=== PATIENT | female | born 1975 | race Caucasian/White ===

== ENCOUNTER → 2019-12-14 | Outpatient (REF) | payer BC ==
[2019-12-14 13:51] LABS: BASO # 0.1 10^3/uL (0.0-0.2); BASO % 0.7 % (0.0-1.0); EOS % 9.8 % (0.0-3.0); HEMATOCRIT 51.1 % (36.0-47.0); HEMOGLOBIN 16.4 g/dl (12.0-15.5); LYMPH # 2.4 10^3/uL (1.5-5.0); LYMPH % 23.2 % (24.0-44.0); MEAN CORPUSCULAR HEMOGLOBIN 29.5 pg (27.0-33.0); MEAN CORPUSCULAR HGB CONC 32.1 g/dl (32.0-36.5); MEAN CORPUSCULAR VOLUME 92.1 fl (80.0-96.0); MONO % 9.1 % (0.0-5.0); NEUTROPHILS # 5.9 10^3/uL (1.5-8.5); NEUTROPHILS % 56.8 % (36.0-66.0); PLATELET COUNT, AUTOMATED 280 10^3/uL (150-450); RED BLOOD COUNT 5.55 10^6/uL (4.00-5.40); WHITE BLOOD COUNT 10.4 10^3/uL (4.0-10.0)
[2019-12-14 14:06] LABS: ALBUMIN 4.6 GM/DL (3.2-5.2); ALT/SGPT 18 U/L (12-78); BILIRUBIN,TOTAL 0.9 MG/DL (0.2-1.0); BLOOD UREA NITROGEN 11 MG/DL (7-18); C REACTIVE PROTEIN QUANTITATIV 0.48 MG/DL (0.00-0.30); CALCIUM LEVEL 9.6 MG/DL (8.5-10.1); CARBON DIOXIDE LEVEL 27 MEQ/L (21-32); CHLORIDE LEVEL 103 MEQ/L (98-107); CREATININE FOR GFR 1.06 MG/DL (0.55-1.30); GLOMERULAR FILTRATION RATE > 60.0 (>58); GLUCOSE, FASTING 78 MG/DL (70-100); POTASSIUM SERUM 4.2 MEQ/L (3.5-5.1); RHEUMATOID FACTOR QUANT < 10.0 IU/ML (<15.0); SODIUM LEVEL 138 MEQ/L (136-145)
[2019-12-14 14:24] LABS: ERYTHROCYTE SEDIMENTATION RATE 2 mm/hr (0-20)
[2019-12-15 14:07] LABS: ANTINUCLEAR ANTIBODIES DIRECT Negative (Negative)
== END ==
LOC: M LABDRWAD 12:19
PROVIDERS: ATTEND Nurse Practitioner Family
DX: R21 Rash and other nonspecific skin eruption (principal)

== ENCOUNTER → 2020-07-25 | Outpatient (REF) | payer BC | LOC: M LAB REF 12:02 | PROVIDERS: ATTEND Nurse Practitioner Family | DX: Z12.4 Encounter for screening for malignant neoplasm of cervix (principal) | CPT/HCPCS: 87624; G0123 ==

== ENCOUNTER → 2020-10-14 | Outpatient (CLI) | payer BC | LOC: M LABSMTC 10:30 | PROVIDERS: ATTEND Anesthesiology | DX: Z01.812 Encounter for preprocedural laboratory examination (principal); Z20.828 Contact with and (suspected) exposure to other viral communicable diseases ==

== ENCOUNTER 2020-10-19 07:20 | Day surgery (SDC) | payer BC ==
[~2020-10-19] VITALS: Ht 167.6 cm; Wt 72.9 kg
[~2020-10-19 07:20] MED LIST: LR 1,000 ML IV ONE; ceFAZolin SOD 2 GM in IV 1 EA IV ONE
[2020-10-19 08:08] LABS: HEMATOCRIT 47.1 % (36.0-47.0); HEMOGLOBIN 15.3 g/dl (12.0-15.5); MEAN CORPUSCULAR HEMOGLOBIN 29.5 pg (27.0-33.0); MEAN CORPUSCULAR HGB CONC 32.5 g/dl (32.0-36.5); MEAN CORPUSCULAR VOLUME 90.9 fl (80.0-96.0); PLATELET COUNT, AUTOMATED 293 10^3/uL (150-450); RED BLOOD COUNT 5.18 10^6/uL (4.00-5.40); WHITE BLOOD COUNT 8.9 10^3/uL (4.0-10.0)
[2020-10-19] MEDS ORDERED: MIDAZOLAM INJ 2MG/2ML VIAL (J2250 PER 1MG) As Ordered ONE (08:40)
[2020-10-19] MEDS ORDERED: fentaNYL 100 MCG/2 ML INJECTION (J3010) As Ordered ONE ×2 (08:40→11:16)
[2020-10-19] MEDS ORDERED: LIDOCAINE 2% 100MG/5ML SDV (FOR ANES.) As Ordered ONE (08:42)
[2020-10-19] MEDS ORDERED: propofoL 200 MG/20 ML VIAL As Ordered ONE (08:42)
[2020-10-19] MEDS ORDERED: ROCURONIUM BROMIDE 50 MG/5 ML VIAL As Ordered ONE ×2 (08:43→10:01)
[2020-10-19] MEDS ORDERED: FLUORESCEIN 10% (100MG/ML) 5 ML VIAL As Ordered ONE (08:46)
[2020-10-19] MEDS ORDERED: METOCLOPRAMIDE INJ 10MG/2ML VIAL (J2765 PER 1) As Ordered ONE (09:17)
[2020-10-19] MEDS ORDERED: ONDANSETRON 4MG/2ML VIAL As Ordered ONE (09:17)
[2020-10-19] MEDS ORDERED: ACETAMINOPHEN 1000MG 100ML IV BTL (OFIRMEV) (J0131 PER 10MG) As Ordered ONE (09:17)
[2020-10-19] MEDS ORDERED: KETOROLAC 60MG 2ML VIAL As Ordered ONE (09:17)
[2020-10-19] MEDS ORDERED: dexameTHASONE 4 MG/ML 1ML VIAL (J1100 PER 1MG) As Ordered ONE (09:17)
[2020-10-19] MEDS ORDERED: SUGAMMADEX SODIUM 500 MG/5 ML VIAL (BRIDION) As Ordered ONE (09:20)
[2020-10-19] MEDS ORDERED: LIDOCAINE W/EPINEPHRINE 1% 20ML VIAL As Ordered ONE (09:21)
[2020-10-19] MEDS ORDERED: HYDROmorphone HCL 2 MG/ML 1ML VIAL (J1170) As Ordered ONE (09:27)
[2020-10-19] MEDS: fentaNYL 100 MCG/2 ML INJECTION (J3010) IV PRN ×4 (11:17→11:46)
[2020-10-19] MEDS ORDERED: ONDANSETRON 4MG/2ML VIAL IV PRN (11:30)
[2020-10-19] MEDS ORDERED: oxyCODONE 5MG TAB PO PRN (11:30)
[2020-10-19] MEDS ORDERED: HYDROMORPHONE HCL 0.5 MG/ 0.5 ML SYRINGE (J1170 PER 1) IV PRN (11:30)
[2020-10-19] MEDS ORDERED: LR 1,000 ML IV SCH (11:30)
[2020-10-19] MEDS ORDERED: PERCOCET 5MG/325MG TAB PO PRN (11:45)
[2020-10-19] MEDS ORDERED: OXYC-517 PO (11:56)
[2020-10-19] MEDS ORDERED: SIMETHICONE 80 MG CHEW TAB PO SCH (12:00)
[2020-10-19 14:10] VITALS: BP 121/67
--- NOTE | 2020-10-19 14:51 | RO ---
DATE OF OPERATION: 10/19/2020 Karen is a 45-year-old female who has an extensive history of abnormal uterine bleeding, post ablation. She was found to have an a large fibroid uterus. After extensive counseling, a decision was made to proceed with a robotic-assisted total hysterectomy and removal of both tubes as well as cystoscopy. PREOPERATIVE DIAGNOSES: 1. A large fibroid uterus. 2. Post ablation. 3. Abnormal uterine bleeding. POSTOPERATIVE DIAGNOSES: 1. A large fibroid uterus. 2. Post ablation. 3. Abnormal uterine bleeding. 4. Dense bladder adhesion. PROCEDURES: 1. Robotic-assisted total hysterectomy. 2. Bilateral salpingectomy. 3. Cystoscopy. 4. Extensive lysis of adhesions. ANESTHESIA: General. SURGEON: Dr. Campos WHARF OPERATOR: Diana Givens COMPLICATIONS: None. ESTIMATED BLOOD LOSS: Less than 100 mL. SPECIMENS SENT TO THE LABORATORY: The uterus, tubes. FINDINGS: A large fibroid uterus with dense bladder adhesions. The bladder was found to be adherent to the lower uterine segment as well as the sidewall. PROCEDURE DESCRIPTION: After obtaining informed consent, patient was taken to the operating room, where general anesthetic was found to be adequate. She was then draped and prepped in the usual sterile fashion in the dorsal lithotomy position. At this point, a Jacobo catheter was placed in the bladder for drainage. A uterine manipulator was placed. Attention was then turned to the abdomen, where using the Veress needle the abdomen was insufflated with CO2 gas to approximately 3.5 liters. We then placed an 8 mm supraumbilical incision for the robotic camera and two 8 mm left lateral ports for robotic arm 1 in the assist port and on the right an 8 mm port for robotic arm 2. At this point, patient was placed in steep Trendelenburg. The robot was brought to the patient's side at a 45-degree angle. The camera port was docked. Proper targeting was done. Then we docked arm 1 and arm 2. A SynchroSeal was placed in arm 1, and bipolar grasper in 2. I then unscrubbed and went to the surgeon console and began the surgery. Upon evaluating the pelvis, small bilateral hydrosalpinx was noted. The entire tube was removed using the SynchroSeal device all the way down to the utero-ovarian ligament. The utero-ovarian ligament was cauterized and cut using the SynchroSeal. This was taken down to the uterine arteries. The uterine arteries were skeletonized and cut using the SynchroSeal. At this point, careful dissection was done to bring down the bladder off the lower uterine segment as well as the sidewall. This was done with a series of sharp and blunt dissection using the SynchroSeal and the bipolar grasper. We secured both uterine arteries. At this point, the SynchroSeal was removed. The EndoShield was inserted, and anterior and posterior colpotomy was performed. The uterus as well as bilateral fallopian tubes were removed in two segments through the vagina. A moistened sponge lap was placed in the vagina to maintain pneumoperitoneum. Then 1 mL of fluorescein was given by the anesthesiologist to help with cystoscopy. The bladder was then retrograde filled to help with cystoscopy. At this point, the vaginal cuff was closed using 2-0 V-lock suture in a running fashion. Pelvis was copiously irrigated with normal saline and suctioned down. I then unscrubbed and went to the patient's side, retrograde filled the bladder with 230 mL of normal saline. The catheter was removed. Cystoscope was inserted. Bilateral ureteral jets noted. No evidence of any bladder injury noted. At this point, the Jacobo catheter was placed back for drainage. I then turned my attention to the abdomen, where the robotic port sites were closed using 3-0 Vicryl in a subcuticular fashion. Then 0.25% Marcaine was placed for postoperative pain. Patient tolerated the procedure well. She was then transferred to recovery room in stable condition. EZE
[2020-10-19] MEDS ORDERED: IBUPROFEN 800 MG TAB PO SCH (15:00)
== END 2020-10-19 14:25 | disposition home or self-care (01) ==
LOC: M SDC 07:20
PROVIDERS: ATTEND Obstetrics & Gynecology
DX: N93.9 Abnormal uterine and vaginal bleeding, unspecified (principal); D25.9 Leiomyoma of uterus, unspecified; K66.0 Peritoneal adhesions (postprocedural) (postinfection)
CPT/HCPCS: 36415; 49329; 58571; 81025; 85027; 86850; 86900; 86901; 88307; J0131; J0690; J1100; J1170; J1885; J2250; J2405; J2765; J3010; S2900

== ENCOUNTER 2021-01-11 09:32 | Emergency (ER) | payer BC ==
[~2021-01-11] VITALS: Ht 167.6 cm; Wt 75.6 kg
[~2021-01-11 09:32] MED LIST changes: -LR 1,000 ML IV ONE; +OXYC-517 PO; -ceFAZolin SOD 2 GM in IV 1 EA IV ONE
--- OUTSIDE RECORDS SUMMARY | 2021-01-11 09:37 | CCD | Continuity of Care Document ---
Author Author Karen W[facility]MAN [employer] Organization Unknown Address [address] [place] [address] [place] [address] Phone [phone] Care Team Providers Care Journeyman Molder Name Role Phone [facility] - Family Medicine AUTM [phone] [facility] AUTM [phone] Problems Description No Information Available Social History Type Date Description Comments Sex Unknown Tobacco Use Start: Unknown Light tobacco smoker (10 or fewe r cigarettes/day) ETOH Use Occasionally consumes alcohol Tobacco Use Start: Unknown Patient is a current smoker, smo kes every day Tobacco Use Start: Unknown Light tobacco smoker (10 or fewe r cigarettes/day) Smoking Status Reviewed: 12/01/20 Light tobacco smoker (10 or fewer cigarettes/day) Allergies, Adverse Reactions, Alerts Description No Known Drug Allergies Medications Active Medications SIG Qnty Indications Ordering Provide r Date Chlorhexidine Gluconate 0.12% Solu tion 10- 15 milliliters as a mouthwash twice daily 236ml K12.0 Jerzy Fernandez JR., M.D. 12/01/2020 History Medications No Active Medications Unknown 05/2021 - 12/01/2020 Immunizations Description No Information Available Vital Signs Date Vital Result Comment 12/01/2020 5:57pm BP Systolic 131 mmHg BP Diastolic 80 mmHg Heart Rate 64 /min 12/01/2020 5:33pm BP Systolic 167 mmHg BP Diastolic 83 mmHg Heart Rate 77 /min Respiratory Rate 14 /min O2 % BldC Oximetry 98 % Body Temperature 97.5 F Weight 160.00 lb Height 66 inches 5'6" BMI (Body Mass Index) 25.8 kg/m2 Pain Level 2 Results Description No Information Available Procedures Description No Information Available Medical Devices Description No Information Available Encounters Description No Information Available Assessments Date Code Description Provider 12/01/2020 K12.0 Recurrent oral aphthae Bia casiano NP Plan of Treatment 12/01/2020 - Bia Wyman NP* K12.0 Recurrent oral aphthae* New Medication:* Chlorhexidine Gluconate 0.12 % - 10-15 milliliters as a mouthwash twice daily * Comments:* abx mouthwash as directedtriggers reviewedOT analgesics PRNorajel PRN f/u PRN or with PCPpatient v/u & agrees to plan Functional Status Description No Information Available Mental Status Description No Information Available Referrals Description No Information Available
--- OUTSIDE RECORDS SUMMARY | 2021-01-11 09:37 | CCD | Continuity of Care Document ---
Author Author Karen W[employer]MAN [employer] Organization Unknown Address [address] [place] [address] [place] [address] Phone [phone] Care Team Providers Care Sawmill Supervisor Name Role Phone [facility] Family [facility] - Family Medicine AUTM [phone] [facility] AUTM [phone] Problems Description No Information Available Social History [...] Medical Devices Description No Information Available Encounters Type Date Location Provider Dx Diagnosis Office Visit 12/01/2020 5:00p Main Office Bia Wyman NP K12. 0 Recurrent oral aphthae Z20.828 Contact w and exposure to ot h viral communicable diseases Assessments Date Code Description Provider 12/01/2020 K12.0 Recurrent oral aphthae Bia casiano NP 12/01/2020 Z20.828 Contact with and (smith spected) exposure to other viral communicable diseases Bia Wyman NP Plan of Treatment No Information Available Functional Status Description No Information Available Mental Status Description No Information Available Referrals Description No Information Available
--- OUTSIDE RECORDS SUMMARY | 2021-01-11 09:37 | CCD | Continuity of Care Document ---
Author Organization Unknown Address Unknown Phone Unavailable Care Team Providers Care Translator And Interpreter Name Role Phone Rahul Nguyen M.D. AUTM [phone] Jay Campos AUTM [phone] Problems Active Problems Provider Date Lluvia Holliday ANP Onset: 01/26/2011 Social History Type Date Description Comments Sex Unknown Tobacco Use Start: Unknown End: Unknown former cigarette smo ker Tobacco Use Start: Unknown End: Unknown Former Cigarette Smo ker Smoking Status Reviewed: 07/25/20 Former Cigarette Smoker Tobacco Use Start: Unknown Never Used Smokeless Tobacco ETOH Use Rarely consumes alcohol Tobacco Use Start: 11/25/92 Patient is a current smoker, smo kes every day usually 3 or 4 cigarettes a day Recreational Drug Use Denies Drug Use Exercise Type/Frequency Exercises regularly Sun Exposure Uses sunscreen Seat Belt/Car Seat Always uses seat belt Bike Helmet Always Smoke Alarms Yes Smoke Alarms Carbon Monoxide Detector: Yes Allergies, Adverse Reactions, Alerts Description No Known Drug Allergies Medications Active Medications SIG Qnty Indications Ordering Provide r Date Cetirizine HCL 10mg Tablets Take 1 Tablet By Mouth Once Daily AT Night 90Tablet Gwen Forde PA 08/08/2020 Xanax 0.25mg Tablets q id prn anxiety 120tabs R21 lEizabeth Kirkland FNP 12/14/2019 F43.0 History Medications Amoxicillin 875mg Tablets 1 by mouth twice a day 14tabs J01.90 Sheila Price M.D. 020 - 07/25/2020 Immunizations CPT Code Status Date Vaccine Lot # [id number] Given 07/13/2020 Boostrix (Tdap) Tetnus, Diphtheria Toxoids & Acellular Pertussis [id number] Vital Signs Date Vital Result Comment 07/25/2020 4:31pm BP Systolic 126 mmHg BP Diastolic 71 mmHg Heart Rate 65 /min Body Temperature 97.8 F Respiratory Rate 16 /min Height 67 inches 5'7" Weight 162.12 lb O2 % BldC Oximetry 99 % Peak Expiratory Flow Rate 389 Estimated Peak Flow Rate [place] Body Weight 135 lb BMI (Body Mass Index) 25.4 kg/m2 07/13/2020 3:15pm BP Systolic 129 mmHg BP Diastolic 66 mmHg Heart Rate 63 /min Body Temperature 98.9 F Respiratory Rate 15 /min Height 67 inches 5'7" Weight 158.50 lb O2 % BldC Oximetry 98 % Peak Expiratory Flow Rate 389 Estimated Peak Flow Rate [place] Body Weight 135 lb BMI (Body Mass Index) 24.8 kg/m2 Results Test Acquired Date Facility Test Result H/L Range Note Complete Blood Count 10/19/2020 [place] [address] [phone] White Blood Count 8.9 10 Normal 4.0-10.0 Red Blood Count 5.18 10 Normal 4.00-5.40 Hemoglobin 15.3 g/dL Normal 12.0-15.5 Hematocrit 47.1 % High 36.0-47.0 Mean Corpuscular Volume 90.9 fl Normal 80.0-96.0 Mean Corpuscular Hemoglobin 29.5 pg Normal 27.0-33.0 Mean Corpuscular HGB Conc 32.5 g/dL Normal 32.0-36.5 Red Cell Distribution Width 12.4 % Normal 11.5-14.5 Platelet Count, Automated 293 10 Normal 150-450 Nucleated Red Blood Cell % 0.0 % Normal 0-0 Type & Screen -Incl Blood Type,Jose,AB SC 10/19/2020 [place] [address] [phone] Blood Type B NEGATIVE Normal AB Screen (Indirect Jael)Vis NEGATIVE Normal Laboratory test finding 07/26/2020 [place] [address] [phone] HPV Screen (High Risk Only) Negative Normal Nega tive 1 Laboratory test finding 07/25/2020 [facility] [phone] Pap Request For Service (SEE NOTE) 2 Laboratory test finding 07/25/2020 [place] [address] [phone] HPV Screen (High Risk Only) SEE COMMENT Normal 1 This nucleic acid amplificat ion test detects fourteen high- risk HPV types (16,18,31,33,35,39,45,51,52,56,58,59,66,68) without differentiation. Performed at: - [facility] [id number] Collection Administrator: Susan Mendoza MD, Phone: [phone] Addendum 1 Entered: [id number] The HPV test is negative for high risk types, test performed at [facility] [address]. 08/04/20201157 Addendum Signed____ MELANI ROWELL CT (ASCP) 08/04/2020 1201 SPECIMEN ADEQUACY: Satisfactory for evaluation CATEGORIZATION: Negative for Intraepithelial Lesion or Malignancy Infection: Reactive Changes: SQUAMOUS CELL: GLANDULAR CELL: COMMENTS: HPV test submitted. The cervical PAP smear is a screening test. Both false positive and false negative results occur. A negative PAP smear does not preclude dysplasia or malignancy. Clinical correlation is required in every case. Further diagnostic procedures may be clinically indicated even if a PAP smear is interpreted as within normal limits. 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) (routine) w/o abn findings Office Visit 07/13/2020 3:15p Main Office Gwen Forde PA J01.90 Acute sinusitis, unspecified Z23 Encounter for immunization Assessments Date Code Description Provider 07/25/2020 Z01.419 Encounter for gyneco logical examination (general) (routine) without abnormal findings Elizabeth Kirkland FNP 07/13/2020 J01.90 Acute sinusitis, unspecified Pet Gwen marlow PA 07/13/2020 Z23 Encounter for immunization Gwen Howe PA Plan of Treatment 07/25/2020 - Elizabeth Kirkland FNP* Z01.419 Encounter for gynecological examination (general) (routine) without abnormal findings* Comments:* Health maintenance up to date. Overall doing well. ABIODUN/PHQ 9/CAGE questionnaire negative. Discussed healthy lifestyle choices. Will get ultrasound to evaluate enlarged uterus, refer to Dr. Cardoso if needed * Follow up:* annually will get letter or call with pap results and recommendation for f/u pap Functional Status Functional Condition Comment Date Status Soft contacts Active Independent with all ADL's Activ e Glasses Active Independent with all IADL's Acti ve Mental Status Mental Condition Comment Date Status None Active Referrals Refer to Reason for Referral Status Appt Date Jay Campos,DO fibrotic changes seen on pel giovani/transvaginal u/s, needs further evaluation Closed 08/31/2020 2 [facility] [id number] [phone]
--- OUTSIDE RECORDS SUMMARY | 2021-01-11 09:37 | CCD ---
Author Author [facility] Organization [facility] Address Unknown Phone Unavailable Care Team Providers Care Soda Jerker Name Role Phone Pleskach, Elizabeth CEMENT TESTER ASSISTANT Unavailable Unavailable Pleskach, Elizabeth CEMENT TESTER ASSISTANT Unavailable Unavailable Pleskach, Elizabeth CEMENT TESTER ASSISTANT Unavailable Unavailable Pleskach, Elizabeth CEMENT TESTER ASSISTANT Unavailable Unavailable Pleskach, Elizabeth CEMENT TESTER ASSISTANT Unavailable Unavailable Pleskach, Elizabeth CEMENT TESTER ASSISTANT Unavailable Unavailable Pleskach, Elizabeth CEMENT TESTER ASSISTANT Unavailable Unavailable Pleskach, Elizabeth CEMENT TESTER ASSISTANT Unavailable Unavailable Pleskach, Elizabeth CEMENT TESTER ASSISTANT Unavailable Unavailable Pleskach, Elizabeth CEMENT TESTER ASSISTANT Unavailable Unavailable Pleskach, Elizabeth CEMENT TESTER ASSISTANT Unavailable Unavailable Pleskach, Elizabeth CEMENT TESTER ASSISTANT Unavailable Unavailable Pleskach, Elizabeth CEMENT TESTER ASSISTANT Unavailable Unavailable Pleskach, Elizabeth CEMENT TESTER ASSISTANT Unavailable Unavailable Pleskach, Elizabeth CEMENT TESTER ASSISTANT Unavailable Unavailable Pleskach, Elizabeth CEMENT TESTER ASSISTANT Unavailable Unavailable Pleskach, Elizabeth CEMENT TESTER ASSISTANT Unavailable Unavailable Pleskach, Elizabeth CEMENT TESTER ASSISTANT Unavailable Unavailable Pleskach, Elizabeth CEMENT TESTER ASSISTANT Unavailable Unavailable Pleskach, Elizabeth CEMENT TESTER ASSISTANT Unavailable Unavailable Pleskach, Elizabeth CEMENT TESTER ASSISTANT Unavailable Unavailable Pleskach, Elizabeth CEMENT TESTER ASSISTANT Unavailable Unavailable Pleskach, Elizabeth CEMENT TESTER ASSISTANT Unavailable Unavailable Pleskach, Elizabeth CEMENT TESTER ASSISTANT Unavailable Unavailable Pleskach, Elizabeth CEMENT TESTER ASSISTANT Unavailable Unavailable Pleskach, Elizabeth CEMENT TESTER ASSISTANT Unavailable Unavailable Pleskach, Elizabeth CEMENT TESTER ASSISTANT Unavailable Unavailable Pleskach, Elizabeth CEMENT TESTER ASSISTANT Unavailable Unavailable Pleskach, Elizabeth CEMENT TESTER ASSISTANT Unavailable Unavailable Pleskach, Elizabeth CEMENT TESTER ASSISTANT Unavailable Unavailable Petrancosta, Weber Gwen PA-C Unavailable Unavailabl e Petrancosta, Weber Gwen PA-C Unavailable Unavailabl e Petrancosta, Weber Gwen PA-C Unavailable Unavailabl e Petrancosta, Weber Gwen PA-C Unavailable Unavailabl e Petrancosta, Weber Gwen PA-C Unavailable Unavailabl e Petrancosta, Weber Gwen PA-C Unavailable Unavailabl e Petrancosta, Weber Gwen PA-C Unavailable Unavailabl e Petrancosta, Weber Gwen PA-C Unavailable Unavailabl e Petrancosta, Weber Gwen PA-C Unavailable Unavailabl e Petrancosta, Weber Gwen PA-C Unavailable Unavailabl e Petrancosta, Weber Gwen PA-C Unavailable Unavailabl e Petrancosta, Weber Gwen PA-C Unavailable Unavailabl e Petrancosta, Weber Gwen PA-C Unavailable Unavailabl e Petrancosta, Weber Gwen PA-C Unavailable Unavailabl e Petrancosta, Weber Gwen PA-C Unavailable Unavailabl e Petrancosta, Weber Gwen PA-C Unavailable Unavailabl e Petrancosta, Weber Gwen PA-C Unavailable Unavailabl e Petrancosta, Weber Gwen PA-C Unavailable Unavailabl e Petrancosta, Weber Gwen PA-C Unavailable Unavailabl e Petrancosta, Weber Gwen PA-C Unavailable Unavailabl e Petrancosta, Weber Gwen PA-C Unavailable Unavailabl e Petrancosta, Weber Gwen PA-C Unavailable Unavailabl e Petrancosta, Weber Gwen PA-C Unavailable Unavailabl e Stevens, Bia REFUSE DRIVER Unavailable Unavailable Stevens, Bia REFUSE DRIVER Unavailable Unavailable Stevens, Bia REFUSE DRIVER Unavailable Unavailable Stevens, Bia REFUSE DRIVER Unavailable Unavailable Stevens, Bia REFUSE DRIVER Unavailable Unavailable Stevens, Bia REFUSE DRIVER Unavailable Unavailable Stevens, Bia REFUSE DRIVER Unavailable Unavailable Stevens, Bia REFUSE DRIVER Unavailable Unavailable Stevens, Bia REFUSE DRIVER Unavailable Unavailable Stevens, Bia REFUSE DRIVER Unavailable Unavailable Stevens, Bia REFUSE DRIVER Unavailable Unavailable Dodard, Jay DO Unavailable Unavailable Dodard, Jay DO Unavailable Unavailable Dodard, Jay DO Unavailable Unavailable Dodard, Jay DO Unavailable Unavailable Dodard, Jay DO Unavailable Unavailable Dodard, Jay DO Unavailable Unavailable Dodard, Jay DO Unavailable Unavailable Dodard, Jay DO Unavailable Unavailable Dodard, Jay DO Unavailable Unavailable Dodard, Jay DO Unavailable Unavailable Dodard, Jay DO Unavailable Unavailable Dodard, Jay DO Unavailable Unavailable Dodard, Jay DO Unavailable Unavailable Dodard, Jay DO Unavailable Unavailable Dodard, Jay DO Unavailable Unavailable Dodard, Jay DO Unavailable Unavailable Dodard, Jay DO Unavailable Unavailable Dodard, Jay DO Unavailable Unavailable Dodard, Jay DO Unavailable Unavailable Dodard, Jay DO Unavailable Unavailable Dodard, Jay DO Unavailable Unavailable Dodard, Jay DO Unavailable Unavailable Dodard, Jay DO Unavailable Unavailable Dodard, Jay DO Unavailable Unavailable Dodard, Jay DO Unavailable Unavailable Dodard, Jay DO Unavailable Unavailable Dodard, Jay DO Unavailable Unavailable Dodard, Jay DO Unavailable Unavailable Dodard, Jay DO Unavailable Unavailable Dodard, Jay DO Unavailable Unavailable Dodard, Jay DO Unavailable Unavailable Dodard, Jay DO Unavailable Unavailable Dodard, Jay DO Unavailable Unavailable Dodard, Jay DO Unavailable Unavailable Dodard, Jay DO Unavailable Unavailable Dodard, Jay DO Unavailable Unavailable Dodard, Jay DO Unavailable Unavailable Dodard, Jay DO Unavailable Unavailable Dodard, Jay DO Unavailable Unavailable Dodard, Jay DO Unavailable Unavailable Dodard, Jay DO Unavailable Unavailable Dodard, Jay DO Unavailable Unavailable Dodard, Jay DO Unavailable Unavailable Dodard, Jay DO Unavailable Unavailable Pleskach, Elizabeth CEMENT TESTER ASSISTANT Unavailable Unavailable Pleskach, Elizabeth CEMENT TESTER ASSISTANT Unavailable Unavailable Pleskach, Elizabeth CEMENT TESTER ASSISTANT Unavailable Unavailable Pleskach, Elizabeth CEMENT TESTER ASSISTANT Unavailable Unavailable Pleskach, Elizabeth CEMENT TESTER ASSISTANT Unavailable Unavailable Pleskach, Elizabeth CEMENT TESTER ASSISTANT Unavailable Unavailable Pleskach, Elizabeth CEMENT TESTER ASSISTANT Unavailable Unavailable Pleskach, Elizabeth CEMENT TESTER ASSISTANT Unavailable Unavailable Pleskach, Elizabeth CEMENT TESTER ASSISTANT Unavailable Unavailable Pleskach, Elizabeth CEMENT TESTER ASSISTANT Unavailable Unavailable Pleskach, Elizabeth CEMENT TESTER ASSISTANT Unavailable Unavailable Pleskach, Elizabeth CEMENT TESTER ASSISTANT Unavailable Unavailable Pleskach, Elizabeth CEMENT TESTER ASSISTANT Unavailable Unavailable Pleskach, Elizabeth CEMENT TESTER ASSISTANT Unavailable Unavailable Pleskach, Elizabeth CEMENT TESTER ASSISTANT Unavailable Unavailable Pleskach, Elizabeth CEMENT TESTER ASSISTANT Unavailable Unavailable Pleskach, Elizabeth CEMENT TESTER ASSISTANT Unavailable Unavailable Pleskach, Elizabeth CEMENT TESTER ASSISTANT Unavailable Unavailable Pleskach, Elizabeth CEMENT TESTER ASSISTANT Unavailable Unavailable Pleskach, Elizabeth CEMENT TESTER ASSISTANT Unavailable Unavailable Pleskach, Elizabeth CEMENT TESTER ASSISTANT Unavailable Unavailable Pleskach, Elizabeth CEMENT TESTER ASSISTANT Unavailable Unavailable Pleskach, Elizabeth CEMENT TESTER ASSISTANT Unavailable Unavailable Pleskach, Elizabeth CEMENT TESTER ASSISTANT Unavailable Unavailable Pleskach, Elizabeth CEMENT TESTER ASSISTANT Unavailable Unavailable Pleskach, Elizabeth CEMENT TESTER ASSISTANT Unavailable Unavailable Pleskach, Elizabeth CEMENT TESTER ASSISTANT Unavailable Unavailable Pleskach, Elizabeth CEMENT TESTER ASSISTANT Unavailable Unavailable Pleskach, Elizabeth CEMENT TESTER ASSISTANT Unavailable Unavailable Pleskach, Elizabeth CEMENT TESTER ASSISTANT Unavailable Unavailable Re-disclosure Warning The records that you are about to access may contain information from federally-assisted alcohol or drug abuse programs. If such information is present, then the following federally mandated warning applies: This information has been disclosed to you from records protected by federal confidentiality rules (42 CFR part 2). The federal rules prohibit you from making any further disclosure of this information unless further disclosure is expressly permitted by the written consent of the person to whom it pertains or as otherwise permitted by 42 CFR part 2. A general authorization for the release of medical or other information is NOT sufficient for this purpose. The Federal rules restrict any use of the information to criminally investigate or prosecute any alcohol or drug abuse patient.The records that you are about to access may contain highly sensitive health information, the redisclosure of which is protected by Article 27-F of the [facility] Public Health law. If you continue you may have access to information: Regarding HIV / AIDS; Provided by facilities licensed or operated by the [facility] Office of Mental Health; or Provided by the [facility] Office for People With Developmental Disabilities. If such information is present, then the following [facility] mandated warning applies: This information has been disclosed to you from confidential records which are protected by state law. State law prohibits you from making any further disclosure of this information without the specific written consent of the person to whom it pertains, or as otherwise permitted by law. Any unauthorized further disclosure in violation of state law may result in a fine or long-term sentence or both. A general authorization for the release of medical or other information is NOT sufficient authorization for further disc losure. Family History Family Member Name Family Member Gender Family Member Status Date o f Status Description Data Source(s) Unknown Male Problem [facility] ([facility] Encounters Encounter Providers Location Date Indications Data Source(s ) Outpatient Attender: Bia Stevens NP Lorrie grullon 12/01/2020 04:00:00 PM EST [facility] ([facility]) Outpatient Attender: Elizabeth Kirkland [facility] Main Office 07/25/2020 0 4:45:00 PM EDT [facility] ([facility] Outpatient Attender: Gwen Forde PA-C Main Office 07/13/2020 03:15:00 PM EDT [facility] ([facility] Outpatient Referrer: Elizabeth ANAYA 05/19/2020 03:46:0 0 PM EDT [facility] Outpatient Referrer: Elizabeth ANAYA 05/12/2020 10:04:0 0 AM EDT [facility] Outpatient Referrer: Elizabeth ANAYA 05/11/2020 03:01:0 0 PM EDT [facility] Outpatient Referrer: Jay Campos DO 05/11/2020 02:59:00 PM EDT [facility] Outpatient Attender: Elizabeth Kirkland [facility] Main Office 12/21/2019 0 7:30:00 AM EST [facility] ([facility] Outpatient Attender: Elizabeth DIANEP Main Office 12/14/2019 0 7:45:00 AM EST [facility] ([facility] Outpatient Attender: Elizabeth Kirkland [facility] Main Office 12/08/2019 0 3:15:00 PM EST [facility] ([facility] Immunizations Vaccine Date Status Description Data Source(s) Tdap 07/13/2020 03:24:00 PM EDT completed M [facility] ([facility] Medications Medication Brand Name Start Date Product Form Dose Route Admi nistrative Instructions Pharmacy Instructions Status Indications Reaction Description Data Source(s) No Active Medications 12/01/2020 12:00:00 AM EST completed [facility] ([facility]) chlorhexidine gluconate 1.2 MG/ML Mouthwash Chlorhexidine Gl uconate 12/01/2020 12:00:00 AM EST active [facility] ([facility]) cetirizine hydrochloride 10 MG Oral Tablet Cetirizine HCL 08/08/2020 12:00:00 AM EDT active [facility] ([facility] Amoxicillin 875 MG Oral Tablet Amoxicillin 07/13/2020 12:00:00 AM EDT ORAL completed [facility] ([facility] Prednisone 20 MG Oral Tablet Prednisone 12/14/2019 12:00:00 AM EST ORAL completed [facility] ([facility] Alprazolam 0.25 MG Oral Tablet [Xanax] Xanax 12/14/2019 12:00:00 AM ES T active [facility] ([facility] cetirizine hydrochloride 10 MG Oral Tablet Cetirizine HCL 12/08/2019 12:00:00 AM EST ORAL active [facility] ([facility] Triamcinolone Acetonide 1 MG/ML Topical Lotion Triamcinolone Acetonide 12/08/2019 12:00:00 AM EST active [facility] ([facility] Insurance Providers Payer name Policy type / Coverage type Policy ID Covered libertarian ID Covered libertarian's relationship to connor Policy Connor Plan Information [place] 302/307 [id number] SP [id number] [place] [place] 306/[id number] SP [id number] EXCELLUS BCBS B [id number] S [id number] EXCELLUS BCBS B [id number] S [id number] [employer] Care Commercial [id number] Family Dependent [id number] Aetna [facility] Commercial [id number] Family Dependent [id number] Aetna Ppo/Pos/Nap/ Commercial [id number] Family Dependen t [id number] Aetna [facility] Care Commercial [id number] Family Dependent [id number] Aetna [facility] Commercial [id number] Family Dependent [id number] BS Of [facility] [id number] Self [id number] EXCELLUS BCBS B [id number] P [id number] BS Of [facility] Self [place] OF [place] [id number] SP [id number] Surgeries/Procedures Procedure Description Date Indications Data Source(s) Mammogram 05/25/2020 12:00:00 AM EDT [facility] ([facility] with [facility], order giv en 04/18/18 Results ID Date Data Source [id number] 12/01/2020 12:00:00 AM EST [facility] Name Value Range Interpretation Code Description Data Laurence rce(s) Supporting Document(s) SARS coronavirus 2 Ag Negative [facility] This lab was ordered by [facility] and reported by [facility]. ID Date Data Source [id number] 10/19/2020 07:35:00 AM EST [facility] ([facility] Name Value Range Interpretation Code Description Data Laurence rce(s) Supporting Document(s) AB Screen (Indirect Jael)Vis Laboratory test result [facility] ([facility] Blood Type Laboratory test result [facility] ([facility] ID Date Data Source [id number] 10/19/2020 07:35:00 AM EST [facility] ([facility] Name Value Range Interpretation Code Description Data Laurence rce(s) Supporting Document(s) White Blood Count 8.9 10 4.0-10.0 [facility] ([facility] Red Blood Count 5.18 10 4.00-5.40 [facility] ([facility] Hematocrit 47.1 % 36.0-47.0 [facility] ([facility] Hemoglobin 15.3 g/dL 12.0-15.5 [facility] ([facility] Mean Corpuscular Volume 90.9 fl 80.0-96.0 M [facility] ([facility] Mean Corpuscular Hemoglobin 29.5 pg 27.0-33.0 [facility] ([facility] Mean Corpuscular HGB Conc 32.5 g/dL 32.0-36.5 [facility] ([facility] Red Cell Distribution Width 12.4 % 11.5-14.5 [facility] ([facility] Platelet Count, Automated 293 10 150-450 [facility] ([facility] Nucleated Red Blood Cell % 0.0 % 0-0 [facility] ([facility] ID Date Data Source [id number] 10/14/2020 10:00:00 AM EST [facility] Name Value Range Interpretation Code Description Data Laurence rce(s) Supporting Document(s) SARS coronavirus 2 RNA [facility] This lab was ordered by [facility] and reported by [facility]. ID Date Data Source [id number] 08/10/2020 12:00:00 AM EDT [facility] Epifanio Montiel Patient Name: VANDA ROMAN [id number] Date of : 1975[place] [address] Date of Exam: 08/10/2020PH#: Fax: [phone] EXAM: US PELVIC COMPLETECLINICAL INFORMATION: History of myomatous change.Transvesical and transvaginal imaging.There are no prior pelvic ultrasounds for comparison. The institutionwhere the patient claims there are priors was queried and they haveindicated that they have no prior examinations on this patient.The uterus measures 12.1 x 6.2 x 8.3 cm. The parenchymal echo pattern ismarkedly heterogeneous and at least two well demarcated solid nodules arenoted, one right inferior uterine body 1.4 x 1.6 x 1.1 cm and the other 6.2x 6.3 x 6.6 cm mid-uterine body. These myomatous changes distort theendometrial echocomplex which cannot be accurately evaluated.The right ovary measures 2.8 x 1.6 x 1.5 cm and is within normal limitswith an RI of .57.The left ovary measures 2.8 x 1.8 x 2.6 cm and is within normal limits withan RI of .44.The urinary bladder measures 9 x 6 x 10 cm.IMPRESSION:Uterine myomatous changes with other findings and limitations as describedabove.Accredited by the [employer] in GynecologicalUltrasound.ROLAND Hernández/Curtis you for referring VANDA ROMAN to our office. Electronically Signed - ROSALIE BENNETT DO 08/12/20 12:35 Name Value Range Interpretation Code Description Data Laurence rce(s) Supporting Document(s) ID Date Data Source [id number] 08/10/2020 12:00:[address] [facility] Epifanio Montiel Patient Name: VANDA ROMAN [id number] [facility] 1975[facility] [place] [address] Date of Exam: 08/10/2020#: Fax: [phone] EXAM: US PELVIC COMPLETECLINICAL INFORMATION: History of myomatous change.Transvesical and transvaginal imaging.There are no prior pelvic ultrasounds for comparison. The institutionwhere the patient claims there are priors was queried and they haveindicated that they have no prior examinations on this patient.The uterus measures 12.1 x 6.2 x 8.3 cm. The parenchymal echo pattern ismarkedly heterogeneous and at least two well demarcated solid nodules arenoted, one right inferior uterine body 1.4 x 1.6 x 1.1 cm and the other 6.2x 6.3 x 6.6 cm mid-uterine body. These myomatous changes distort theendometrial echocomplex which cannot be accurately evaluated.The right ovary measures 2.8 x 1.6 x 1.5 cm and is within normal limitswith an RI of .57.The left ovary measures 2.8 x 1.8 x 2.6 cm and is within normal limits withan RI of .44.The urinary bladder measures 9 x 6 x 10 cm.IMPRESSION:Uterine myomatous changes with other findings and limitations as describedabove.Accredited by the [employer] in GynecologicalUltrasound.ROLAND Hernández/Curtis [place] for referring VANDA ROMAN to our office. Electronically Signed - ROSALIE BENNETT DO 08/12/20 12:35 Name Value Range Interpretation Code Description Data Laurence rce(s) Supporting Document(s) ID Date Data Source [id number] 07/26/2020 10:00:00 AM EDT [facility] ([facility] Name Value Range Interpretation Code Description Data Laurence rce(s) Supporting Document(s) HPV Screen (High Risk Only) Laboratory test result [facility] ([facility] This nucleic acid amplification test det ects fourteen high- risk HPV types (16,18,31,33,35,39,45,51,52,56,58,59,66,68) without differentiation. Performed at: [facility] [id number] Trolley Worker: Susan Mendoza MD, Phone: [phone] ID Date Data Source [id number] 07/25/2020 04:37:00 PM EDT [facility] ([facility] Name Value Range Interpretation Code Description Data Laurence rce(s) Supporting Document(s) Cytology Cervical or vaginal smear or scraping study Laboratory grace t result [facility] ([facility] Addendum 1 Entered: 08/04/2020-1158 The HPV test is negative for high risk types, test performed at [facility] [address]. 08/04/20201157 Addendum Signed____ MELANI ROWELL (ASCP) 08/04/2020 1201 SPECIMEN ADEQUACY: Satisfactory for [...] smear is interpreted as within normal limits. 07/29/2020 - [address] (ASCP) 07/29/2020 1136 ID Date Data Source [id number] 07/25/2020 12:00:00 PM EDT [facility] ([facility] Name Value Range Interpretation Code Description Data Laurence rce(s) Supporting Document(s) HPV Screen (High Risk Only) Laboratory test result [facility] ([facility] ID Date Data Source [id number] 05/19/2020 12:00:[address] [facility] Epifanio [facility] Patient Name: VANDA ROMAN [id number] Date of : 1975[place] [address] Date of Exam: 05/19/2020#: Fax: [phone] EXAM: MAMMO SCREENING WITH CADCLINICAL INFORMATION: Screening examination. She describes some palpablefinding near the sternum a little towards the left which the technologistnotes is marked on the patient but not in the field of view of the standardimages.COMPARISON: 09/21/2016, 09/19/2015.TECHNIQUE: Digital screening (2D) mammography was performed bilaterally inthe CC and MLO projections. Additionally, breast tomosynthesis (3Dmammography) was performed bilaterally in the CC and MLO projections.The Volpara volumetric breast density category is D, the breasts areextremely dense which lowers the sensitivity of mammography.FINDINGS:The breasts are very dense. This limits the sensitivity of mammography.Scattered lymph nodes are seen in the axilla.Because of the parenchymal density, consider adjunctive breast screeningMRI in addition to screening mammography.The 3D tomosynthesis images show no additional findings.The marker placed by the technologist over the reported palpable lump inthe parasternal region is not visible on any of the mammogram images.IMPRESSION:1. BI-RADS Category 0- Incomplete, needs additional imaging evaluation.Parasternal palpable lump probably not in the breast but its locationswarrants ultrasound of this palpable finding and precise marking of itslocation compared to the breast proper. Today's images show no abnormalitywithin the visualized portions of the breasts.Our office will attempt to contact the patient for additional imaging.This mammogram was read with the assistance of PulsePoint, an FDAapproved computer aided detection system for mammography.Negative x-ray reports should not delay surgical cons ultation if a dominantor clinically suspicious mass is present.Not all breast cancers can be identified by mammography. Therefore, werecommend that you continue to perform regular breast self-examination andphysical examination and then promptly contact your physician of anyconcerns or changes.Adenosis and dense breasts may obscure an underlying neoplasm.The patient states that a clinical breast examination was over a year ago.Based on the personal and family history information your patient suppliedat the time of imaging, her lifetime risk of breast cancer estimated by theTyrer-Cuzick model is 10%. Given that this patient has less than 20% TCrisk score, no further medical management is currently recommended at thistime.The patient deferred consideration of genetic screening until she returnsfor further imaging.BELINDA Bradley/Cailin you for referring VANDA ROMAN to our office. Electronically Signed - FLORESITA SULLIVAN MD 05/26/20 12:59 Name Value Range Interpretation Code Description Data Laurence rce(s) Supporting Document(s) Procedure Social History Code Duration Value Status Description Data Source(s ) Smoking 07/25/2020 12:00:00 AM EDT Former Cigarette Smoker com pleted Former Cigarette Smoker [facility] ([facility] Vital Signs ID Date Data Source UNK Name Value Range Interpretation Code Description Data Source(s) Heart rate 64 /min 64 /min [facility] ([facility]) Diastolic blood pressure 80 mm[Hg] 80 mm[Hg] [facility] ([facility]) Systolic blood pressure 131 mm[Hg] 131 mm[Hg] [facility] ([facility]) Body mass index (BMI) [Ratio] 25.8 kg/m2 25.8 k g/m2 [facility] ([facility]) Body height 66 [in_i] 66 [in_i] [facility] ([facility]) 5'6" Body weight 160.00 [lb_av] 160.00 [lb_av] [facility] ([facility]) Body temperature 97.5 [degF] 97.5 [degF] [facility] [facility] Oxygen saturation in Arterial blood by Pulse oximetry 98 % 98 % [facility] ([facility]) Respiratory rate 14 /min 14 /min [facility] ( [facility]) Heart rate 77 /min 77 /min [facility] ([facility], [facility]) Diastolic blood pressure 83 mm[Hg] 83 mm[Hg] [facility] ([facility]) Systolic blood pressure 167 mm[Hg] 167 mm[Hg] [facility] ([facility]) Body mass index (BMI) [Ratio] 25.4 kg/m2 25.4 k g/m2 [facility] ([facility] [place] body weight 135 [lb_av] 135 [lb_av] [facility] ([facility] Oxygen saturation in Arterial blood by Pulse oximetry 99 % 99 % [facility] ([facility] Body weight 162.12 [lb_av] 162.12 [lb_av] [facility] ([facility] Body height 67 [in_i] 67 [in_i] [facility] ([facility] 5'7" Respiratory rate 16 /min 16 /min [facility] ( [facility] Body temperature 97.8 [degF] 97.8 [degF] [facility] ([facility] Heart rate 65 /min 65 /min [facility] ([facility] Diastolic blood pressure 71 mm[Hg] 71 mm[Hg] [facility] ([facility] Systolic blood pressure 126 mm[Hg] 126 mm[Hg] [facility] ([facility] Body mass index (BMI) [Ratio] 24.8 kg/m2 24.8 k g/m2 [facility] ([facility] [place] body weight 135 [lb_av] 135 [lb_av] [facility] ([facility] Oxygen saturation in Arterial blood by Pulse oximetry 98 % 98 % [facility] ([facility] Body weight 158.50 [lb_av] 158.50 [lb_av] [facility] ([facility] Body height 67 [in_i] 67 [in_i] [facility] ([facility] 5'7" Respiratory rate 15 /min 15 /min [facility] ( [facility] Body temperature 98.9 [degF] 98.9 [degF] [facility] ([facility] Heart rate 63 /min 63 /min [facility] ([facility] Diastolic blood pressure 66 mm[Hg] 66 mm[Hg] [facility] ([facility] Systolic blood pressure 129 mm[Hg] 129 mm[Hg] [facility] ([facility] Body mass index (BMI) [Ratio] 25.8 kg/m2 25.8 k g/m2 [facility] ([facility] Body weight 165.00 [lb_av] 165.00 [lb_av] [facility] ([facility] Body height 67 [in_i] 67 [in_i] [facility] ([facility] 5'7" Respiratory rate 15 /min 15 /min [facility] ( [facility] Body temperature 99.1 [degF] 99.1 [degF] [facility] ([facility] Heart rate 81 /min 81 /min [facility] ([facility] Diastolic blood pressure 60 mm[Hg] 60 mm[Hg] [facility] ([facility] Systolic blood pressure 108 mm[Hg] 108 mm[Hg] [facility] ([facility] Body mass index (BMI) [Ratio] 25.7 kg/m2 25.7 k g/m2 [facility] ([facility] Oxygen saturation in Arterial blood by Pulse oximetry 98 % 98 % [facility] ([facility] Body weight 164.25 [lb_av] 164.25 [lb_av] [facility] ([facility] Body height 67 [in_i] 67 [in_i] [facility] ([facility] 5'7" Respiratory rate 17 /min 17 /min [facility] ( [facility] Body temperature 98.4 [degF] 98.4 [degF] [facility] ([facility] Heart rate 93 /min 93 /min [facility] ([facility] Diastolic blood pressure 87 mm[Hg] 87 mm[Hg] [facility] ([facility] [place] Systolic blood pressure 115 mm[Hg] 115 mm[Hg] [facility] ([facility] [place] Body mass index (BMI) [Ratio] 26.0 kg/m2 26.0 k g/m2 [facility] ([facility] Oxygen saturation in Arterial blood by Pulse oximetry 99 % 99 % [facility] ([facility] Body weight 166.12 [lb_av] 166.12 [lb_av] [facility] ([facility] Body height 67 [in_i] 67 [in_i] [facility] ([facility] 5'7" Respiratory rate 16 /min 16 /min [facility] ( [facility] Body temperature 97.3 [degF] 97.3 [degF] [facility] ([facility] Heart rate 70 /min 70 /min [facility] ([facility] Diastolic blood pressure 87 mm[Hg] 87 mm[Hg] [facility] ([facility] Systolic blood pressure 138 mm[Hg] 138 mm[Hg] [facility] ([facility]
--- OUTSIDE RECORDS SUMMARY | 2021-01-11 10:08 | CCD ---
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 Name Role Phone Pleskach, Elizabeth IT SYSTEMS MANAGER Unavailable Unavailable Pleskach, Elizabeth IT SYSTEMS MANAGER Unavailable Unavailable Pleskach, Elizabeth IT SYSTEMS MANAGER Unavailable Unavailable Pleskach, Elizabeth IT SYSTEMS MANAGER Unavailable Unavailable Pleskach, Elizabeth IT SYSTEMS MANAGER Unavailable Unavailable Pleskach, Elizabeth IT SYSTEMS MANAGER Unavailable Unavailable Pleskach, Elizabeth IT SYSTEMS MANAGER Unavailable Unavailable Pleskach, Elizabeth IT SYSTEMS MANAGER Unavailable Unavailable Pleskach, Elizabeth IT SYSTEMS MANAGER Unavailable Unavailable Pleskach, Elizabeth IT SYSTEMS MANAGER Unavailable Unavailable Pleskach, Elizabeth IT SYSTEMS MANAGER Unavailable Unavailable Pleskach, Elizabeth IT SYSTEMS MANAGER Unavailable Unavailable Pleskach, Elizabeth IT SYSTEMS MANAGER Unavailable Unavailable Pleskach, Elizabeth IT SYSTEMS MANAGER Unavailable Unavailable Pleskach, Elizabeth IT SYSTEMS MANAGER Unavailable Unavailable Pleskach, Elizabeth IT SYSTEMS MANAGER Unavailable Unavailable Pleskach, Elizabeth IT SYSTEMS MANAGER Unavailable Unavailable Pleskach, Elizabeth IT SYSTEMS MANAGER Unavailable Unavailable Pleskach, Elizabeth IT SYSTEMS MANAGER Unavailable Unavailable Pleskach, Elizabeth IT SYSTEMS MANAGER Unavailable Unavailable Pleskach, Elizabeth IT SYSTEMS MANAGER Unavailable Unavailable Pleskach, Elizabeth IT SYSTEMS MANAGER Unavailable Unavailable Pleskach, Elizabeth IT SYSTEMS MANAGER Unavailable Unavailable Pleskach, Elizabeth IT SYSTEMS MANAGER Unavailable Unavailable Pleskach, Elizabeth IT SYSTEMS MANAGER Unavailable Unavailable Pleskach, Elizabeth IT SYSTEMS MANAGER Unavailable Unavailable Pleskach, Elizabeth IT SYSTEMS MANAGER Unavailable Unavailable Pleskach, Elizabeth IT SYSTEMS MANAGER Unavailable Unavailable Pleskach, Elizabeth IT SYSTEMS MANAGER Unavailable Unavailable Pleskach, Elizabeth IT SYSTEMS MANAGER Unavailable Unavailable Petrancosta, [place] Gwen PA-C Unavailable Unavailabl e Petrancosta, [place] Gwen PA-C Unavailable Unavailabl e Petrancosta, [place] Wgen PA-C Unavailable Unavailabl e Petrancosta, [place] Gwen PA-C Unavailable Unavailabl e Petrancosta, [place] Gwen PA-C Unavailable Unavailabl e Petrancosta, [place] Gwen PA-C Unavailable Unavailabl e Petrancosta, [place] Gwen PA-C Unavailable Unavailabl e Petrancosta, [place] Gwen PA-C Unavailable Unavailabl e Petrancosta, [place] Gwen PA-C Unavailable Unavailabl e Petrancosta, [place] Gwen PA-C Unavailable Unavailabl e Petrancosta, [place] Gwen PA-C Unavailable Unavailabl e Petrancosta, [place] Gwen PA-C Unavailable Unavailabl e Petrancosta, [place] Gwen PA-C Unavailable Unavailabl e Petrancosta, [place] Gwen PA-C Unavailable Unavailabl e Petrancosta, [place] Gwen PA-C Unavailable Unavailabl e Petrancosta, [place] Gwen PA-C Unavailable Unavailabl e Petrancosta, [place] Gwen PA-C Unavailable Unavailabl e Petrancosta, [place] Gwen PA-C Unavailable Unavailabl e Petrancosta, [place] Gwen PA-C Unavailable Unavailabl e Petrancosta, [place] Gwen PA-C Unavailable Unavailabl e Petrancosta, [place] Gwen PA-C Unavailable Unavailabl e Petrancosta, [place] Gwen PA-C Unavailable Unavailabl e Petrancosta, [place] Gwen PA-C Unavailable Unavailabl e Stevens, Bia WEIGHT CHECKER Unavailable Unavailable Stevens, Bia WEIGHT CHECKER Unavailable Unavailable Stevens, Bia WEIGHT CHECKER Unavailable Unavailable Stevens, Bia WEIGHT CHECKER Unavailable Unavailable Stevens, Bia WEIGHT CHECKER Unavailable Unavailable Stevens, Bia WEIGHT CHECKER Unavailable Unavailable Stevens, Bia WEIGHT CHECKER Unavailable Unavailable Stevens, Bia WEIGHT CHECKER Unavailable Unavailable Stevens, Bia WEIGHT CHECKER Unavailable Unavailable Stevens, Bia WEIGHT CHECKER Unavailable Unavailable Stevens, Bia WEIGHT CHECKER Unavailable Unavailable Dodard, Jay DO Unavailable Unavailable [...] Dodard, Jay DO Unavailable Unavailable Pleskach, Elizabeth IT SYSTEMS MANAGER Unavailable Unavailable Pleskach, Elizabeth IT SYSTEMS MANAGER Unavailable Unavailable Pleskach, Elizabeth IT SYSTEMS MANAGER Unavailable Unavailable Pleskach, Elizabeth IT SYSTEMS MANAGER Unavailable Unavailable Pleskach, Elizabeth IT SYSTEMS MANAGER Unavailable Unavailable Pleskach, Elizabeth IT SYSTEMS MANAGER Unavailable Unavailable Pleskach, Elizabeth IT SYSTEMS MANAGER Unavailable Unavailable Pleskach, Elizabeth IT SYSTEMS MANAGER Unavailable Unavailable Pleskach, Elizabeth IT SYSTEMS MANAGER Unavailable Unavailable Pleskach, Elizabeth IT SYSTEMS MANAGER Unavailable Unavailable Pleskach, Elizabeth IT SYSTEMS MANAGER Unavailable Unavailable Pleskach, Elizabeth IT SYSTEMS MANAGER Unavailable Unavailable Pleskach, Elizabeth IT SYSTEMS MANAGER Unavailable Unavailable Pleskach, Elizabeth IT SYSTEMS MANAGER Unavailable Unavailable Pleskach, Elizabeth IT SYSTEMS MANAGER Unavailable Unavailable Pleskach, Elizabeth IT SYSTEMS MANAGER Unavailable Unavailable Pleskach, Elizabeth IT SYSTEMS MANAGER Unavailable Unavailable Pleskach, Elizabeth IT SYSTEMS MANAGER Unavailable Unavailable Pleskach, Elizabeth IT SYSTEMS MANAGER Unavailable Unavailable Pleskach, Elizabeth IT SYSTEMS MANAGER Unavailable Unavailable Pleskach, Elizabeth IT SYSTEMS MANAGER Unavailable Unavailable Pleskach, Elizabeth IT SYSTEMS MANAGER Unavailable Unavailable Pleskach, Elizabeth IT SYSTEMS MANAGER Unavailable Unavailable Pleskach, Elizabeth IT SYSTEMS MANAGER Unavailable Unavailable Pleskach, Elizabeth IT SYSTEMS MANAGER Unavailable Unavailable Pleskach, Elizabeth IT SYSTEMS MANAGER Unavailable Unavailable Pleskach, Elizabeth IT SYSTEMS MANAGER Unavailable Unavailable Pleskach, Elizabeth IT SYSTEMS MANAGER Unavailable Unavailable Pleskach, Elizabeth IT SYSTEMS MANAGER Unavailable Unavailable Pleskach, Elizabeth IT SYSTEMS MANAGER Unavailable Unavailable Re-disclosure Warning The records that [...] is protected by Article 27-F of the [facility] Public Health law. If you continue you may have access to information: Regarding HIV / AIDS; Provided by facilities licensed or operated by the [facility] Office of Mental Health; or Provided by the [facility] Office for People With Developmental Disabilities. If such information is present, then the following [facility] mandated warning applies: This information has been [...] law may result in a fine or fci sentence or both. A general authorization for [...] Lorrie grullon 12/01/2020 04:00:00 PM EST [facility] ([facility], [facility]) Outpatient Attender: Elizabeth DIANEP Main Office 07/25/2020 0 4:45:00 PM EDT [...] [facility] Outpatient Attender: Elizabeth Kirkland [facility] Main Office 12/21/2019 0 7:30:00 AM EST [facility] ([facility] Outpatient Attender: Elizabeth Kirkland [facility] Main Office 12/14/2019 0 7:45:00 AM EST [facility] ([facility] Outpatient Attender: Elizabeth Kirkland [facility] Main Office 12/08/2019 0 3:15:00 PM EST [facility] ([facility] Immunizations Vaccine Date Status Description Data Source(s) Tdap 07/13/2020 03:24:00 PM EDT completed M [facility] ([facility] Medications Medication Brand Name Start Date Product Form Dose Route Admi nistrative Instructions Pharmacy Instructions Status Indications Reaction Description Data Source(s) No Active Medications 12/01/2020 12:00:00 AM EST completed [facility] ([facility], [facility]) chlorhexidine gluconate 1.2 MG/ML Mouthwash Chlorhexidine Gl uconate 12/01/2020 12:00:00 AM EST active M [facility] ([facility]) cetirizine hydrochloride 10 MG Oral Tablet Cetirizine [...] type / Coverage type Policy ID Covered constitution party ID Covered constitution party's relationship to connor Policy Connor Plan Information [place] 302/307 [id number] SP [id number] [place] [place] 306/[phone] [id number] SP [id number] EXCELLUS BCBS B [id number] S [id number] EXCELLUS BCBS B [id number] S [id number] A[employer] Care Commercial [id number] Family Dependent [id number] Aetna [facility] Commercial [id number] Family Dependent [id number] Aetna Ppo/Pos/Nap/ Commercial [id number] Family Dependen t [id number] Aetna [facility] Commercial [id number] Family Dependent [id number] Aetna [facility] Commercial [id number] Family Dependent [id number] BS Of [facility] ([facility]) [id number] Self [id number] EXCELLUS BCBS B [id number] P [id number] BS Of [facility] ([facility]) Self BCBS OF [place] [phone] [id number] SP [id number] Surgeries/Procedures Procedure Description Date Indications Data Source(s) Mammogram 05/25/2020 12:00:00 AM EDT Regine BUCHANAN ([facility] with [facility], order giv en 04/18/18 Results ID Date Data Source [id number] 12/01/2020 12:00:00 AM EST [facility] Name Value Range Interpretation Code Description Data Laurence rce(s) Supporting Document(s) SARS coronavirus 2 Ag Negative [facility] This lab was ordered by [facility] and reported by [facility]. ID Date Data Source [id number] 10/19/2020 07:35:00 AM EST [facility] ([facility] Name Value Range Interpretation Code Description Data Laurence rce(s) Supporting Document(s) AB Screen (Indirect Jael)Vis Laboratory test result [facility] ([facility] Blood Type Laboratory test result [facility] ([facility] ID Date Data Source [id number] 10/19/2020 07:35:00 AM EST [facility] ([facility] ID Date Data Source [id number] 10/14/2020 10:00:00 AM EST [facility] Name Value Range Interpretation Code Description Data Laurence rce(s) Supporting Document(s) SARS coronavirus 2 RNA [facility] This lab was ordered by [facility] and reported by [facility]. ID Date Data Source [id number] 08/10/2020 12:00:00 AM EDT [facility] Epifanio Montiel Patient Name: VANDA ROMAN [id number] Date of : 1975[place] [address] Date of Exam: 08/10/2020PH#: Fax: [phone] EXAM: [...] findings and limitations as describedabove.Accredited by the [employer] in GynecologicalUltrasound.ROLAND Hernández/Curtis you for referring VANDA ROMAN to our office. Electronically Signed - ROSALIE BENNETT DO 08/12/20 12:35 Name Value Range Interpretation Code Description Data Laurence rce(s) Supporting Document(s) ID Date Data Source [id number] 08/10/2020 12:00:00 AM EDT [facility]an[facility]iel Patient Name: VANDA ROMAN [id number] [address] [facility] 1975[facility] [place] [address] Date of Exam: 08/10/2020#: Fax: [phone] EXAM: [...] findings and limitations as describedabove.Accredited by the [employer] in GynecologicalUltrasound.ROLAND Hernández/Curtis [place] for referring VANDA ROMAN to our office. Electronically Signed - ROSALIE BENNETT DO 08/12/20 12:35 Name Value Range Interpretation Code Description Data Laurence rce(s) Supporting Document(s) ID Date Data Source [id number] 07/26/2020 10:00:00 AM EDT [facility] ([facility] Name Value Range Interpretation Code Description Data Laurence rce(s) Supporting Document(s) HPV Screen (High Risk Only) Laboratory test result [facility] ([facility] This nucleic acid amplification test det ects fourteen high- risk HPV types (16,18,31,33,35,39,45,51,52,56,58,59,66,68) without differentiation. Performed at: [facility] [id number] [employer] Supervisor: Susan Mendoza MD, Phone: [phone] ID Date Data Source [id number] 07/25/2020 04:37:00 PM EDT [facility] ([facility] Name Value Range Interpretation Code Description Data Laurence rce(s) Supporting Document(s) Cytology Cervical or vaginal smear or scraping study Laboratory grace t result [facility] ([facility] Addendum 1 Entered: 08/04/2020-1158 The HPV test is negative for high risk types, test performed at [facility] [address]. 08/04/20201157 Addendum Signed____ MELANI ROWELL (ASCP) 08/04/2020 [...] (ASCP) 07/29/2020 1136 ID Date Data Source [id number] 07/25/2020 12:00:00 PM EDT [facility] ([facility] Name Value Range Interpretation Code Description Data Laurence rce(s) Supporting Document(s) HPV Screen (High Risk Only) Laboratory test result [facility] ([facility] ID Date Data Source [id number] 05/19/2020 12:00:00 AM EDT [facility] Epifanio Montiel Patient Name: VANDA ROMAN [id number] Date of : 1975[place] [address] Date of Exam: 05/19/2020#: Fax: [phone] EXAM: [...] mammogram was read with the assistance of Hactus, an FDAapproved computer aided detection system for [...] Heart rate 64 /min 64 /min [facility] ([facility], [facility]) Diastolic blood pressure 80 mm[Hg] 80 mm[Hg] [facility] ([facility]) Systolic blood pressure 131 mm[Hg] 131 mm[Hg] [facility] Body mass index (BMI) [Ratio] 25.8 kg/m2 25.8 k g/m2 [facility] ([facility]) Body height 66 [in_i] 66 [in_i] [facility] ([facility]) 5'6" Body weight 160.00 [lb_av] 160.00 [lb_av] [facility] ([facility]) Body temperature 97.5 [degF] 97.5 [degF] [facility] ([facility]) Oxygen saturation in Arterial blood by Pulse oximetry 98 % 98 % [facility] ([facility]) Respiratory rate 14 /min 14 /min [facility] ( [facility]) Heart rate 77 /min 77 /min [facility] ([facility], [facility]) Diastolic blood pressure 83 mm[Hg] 83 mm[Hg] [facility] ([facility]) Systolic blood pressure 167 mm[Hg] 167 mm[Hg] [facility] ([facility]) Body mass index (BMI) [Ratio] 25.4 kg/m2 25.4 k g/m2 [facility] ([facility] [place] body weight 135 [lb_av] 135 [lb_av] [facility] [...] Body temperature 97.8 [degF] 97.8 [degF] [facility] ([facility] Heart rate 65 /min 65 /min [facility] ([facility] Diastolic blood pressure 71 mm[Hg] 71 mm[Hg] [facility] ([facility] Systolic blood pressure 126 mm[Hg] 126 mm[Hg] [facility] ([facility] Body mass index (BMI) [Ratio] 24.8 kg/m2 24.8 k g/m2 [facility] ([facility] [place] body weight 135 [lb_av] 135 [lb_av] [facility] [...]
[2021-01-11 10:14] LABS: BASO # 0.1 10^3/uL (0.0-0.2); BASO % 0.6 % (0.0-1.0); EOS # 0.3 10^3/uL (0.0-0.5); EOS % 3.1 % (0.0-3.0); HEMATOCRIT 43.9 % (36.0-47.0); HEMOGLOBIN 14.4 g/dl (12.0-15.5); LYMPH # 2.1 10^3/uL (1.5-5.0); LYMPH % 23.8 % (24.0-44.0); MEAN CORPUSCULAR HEMOGLOBIN 29.7 pg (27.0-33.0); MEAN CORPUSCULAR HGB CONC 32.8 g/dl (32.0-36.5); MEAN CORPUSCULAR VOLUME 90.5 fl (80.0-96.0); MONO # 0.8 10^3/uL (0.0-0.8); MONO % 8.5 % (2.0-8.0); NEUTROPHILS # 5.7 10^3/uL (1.5-8.5); NEUTROPHILS % 63.7 % (36.0-66.0); PLATELET COUNT, AUTOMATED 264 10^3/uL (150-450); RED BLOOD COUNT 4.85 10^6/uL (4.00-5.40)
[2021-01-11 10:23] LABS: INR 0.99; PROTHROMBIN TIME 13.3 SECONDS (12.5-14.3)
[2021-01-11 10:24] LABS: PARTIAL THROMBOPLASTIN TIME 24.5 SECONDS (24.2-38.5)
[2021-01-11 10:27] LABS: D-DIMER QUANT 479.95 ng/ml (<500)
[2021-01-11 10:45] LABS: HCG, SERUM QUALITATIVE NEGATIVE (NEGATIVE)
[2021-01-11 10:47] LABS: ERYTHROCYTE SEDIMENTATION RATE 4 mm/hr (0-20)
[2021-01-11 10:52] LABS: ALBUMIN 3.9 GM/DL (3.2-5.2); ALT/SGPT 16 U/L (12-78); BILIRUBIN,DIRECT 0.1 MG/DL (0.0-0.2); BILIRUBIN,TOTAL 0.3 MG/DL (0.2-1.0); BLOOD UREA NITROGEN 10 MG/DL (7-18); CARBON DIOXIDE LEVEL 27 MEQ/L (21-32); CHLORIDE LEVEL 108 MEQ/L (98-107); CK-MB VALUE MASS < 1.0 NG/ML (<3.6); CPK CREATINE PHOSPHOKINASE 54 U/L (26-192); CREATININE FOR GFR 0.85 MG/DL (0.55-1.30); FERRITIN 119 NG/ML (8-252); GLOMERULAR FILTRATION RATE > 60.0 (>58); GLUCOSE, FASTING 80 MG/DL (70-100); LDH LACTATE DEHYDROGENASE 129 U/L (84-246); LIPASE 198 U/L (73-393); MB/CK RELATIVE INDEX 1.85 (< OR =4); NT-PRO BNP 35 PG/ML (<125); SODIUM LEVEL 140 MEQ/L (136-145); TOTAL PROTEIN 7.1 GM/DL (6.4-8.2); TROPONIN I < 0.02 NG/ML (< 0.10)
[2021-01-11 10:58] LABS: RSV AMPLIFICATION NEGATIVE (NEGATIVE)
--- NOTE | 2021-01-11 11:14 | REP ---
INDICATION: CHEST PAIN COMPARISON: 06/04/2011 TECHNIQUE: Portable AP view of the chest FINDINGS: The mediastinum and cardiac silhouette are stable and within normal limits for portable technique. The lung osorio are clear without acute consolidation, effusion, or pneumothorax. Skeletal structures are intact. IMPRESSION: No acute cardiopulmonary process appreciated. <Electronically signed by Jarvis Coronel > 01/11/21 1111
[2021-01-11] MEDS ORDERED: ISOVUE-370 76% 100ML VIAL As Ordered ONE (11:45)
--- NOTE | 2021-01-11 12:25 | REP ---
INDICATION: chest pain. COMPARISON: None. TECHNIQUE: Contrast dose: 75 ML of Isovue [address] technique: Helical scanning is acquired and overlapping 1.5 mm and contiguous 3 mm axial images are reformatted. In addition, maximum intensity projection and multiplanar re-formation images are generated in sagittal and coronal imaging projections. FINDINGS: There is good opacification in the pulmonary arterial tree. There is no evidence of vessel cut off or filling defect to suggest pulmonary embolus. Homogeneous opacity is seen in the thoracic aorta. There is no evidence of aneurysm or dissection. Lung window settings demonstrate clear well inflated lungs. No infiltrate, atelectasis, or mass. No pleural or pericardial effusion is seen. No hilar or mediastinal mass or adenopathy is observed. In the upper abdomen, calcified gallstones are noted layering in the dependent portion of the gallbladder fundus. There is a small cyst in the right lobe of the liver. The visualized upper abdominal structures are otherwise unremarkable. IMPRESSION: No CT evidence of pulmonary embolus. Cholelithiasis and small benign liver cysts noted incidentally. Otherwise normal. <Electronically signed by Topher Robles > 01/11/21 [id number]
[2021-01-11 14:44] LABS: CK-MB VALUE MASS < 1.0 NG/ML (<3.6); CPK CREATINE PHOSPHOKINASE 56 U/L (26-192); MB/CK RELATIVE INDEX 1.79 (< OR =4); TROPONIN I < 0.02 NG/ML (< 0.10)
[2021-01-11] MEDS ORDERED: ALBUTEROL 90 MCG/ACT 8GM HFA INHALER INH ONE (15:15)
[2021-01-11] MEDS ORDERED: SUCR1TA PO (15:27)
[2021-01-11] MEDS ORDERED: OMEP40CA97 PO (15:27)
[2021-01-11] MEDS ORDERED: PROV108A INH (15:27)
[2021-01-11] MEDS ORDERED: PRED20TA PO (15:27)
[2021-01-11 15:34] VITALS: BP 117/72
--- NOTE | 2021-01-13 08:05 | ECGEPIP ---
[facility] - ED Test Date: 2021-01-11 Pat Name: VANDA ROMAN Department: Room: - Gender: Female [employer] Person: NIELS : 1975 Requested By: NATALIE Brower Order Number: [id number] Reading MD: Mariya Mariee Measurements Intervals [place] Rate: 66 P: 41 MI: 118 QRS: 32 QRSD: 74 T: 30 QT: 402 QTc: 421 Interpretive Statements Normal sinus rhythm with sinus arrhythmia NSTTW abnormalities No prior Electronically Signed on 01-13-2021 8:05:04 EST by Mariya Mariee
--- NOTE | 2021-01-13 08:08 | ECGEPIP ---
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
== END 2021-01-11 15:50 | disposition home or self-care (01) ==
LOC: M ED 09:32
DX: R07.89 Other chest pain (principal); R06.02 Shortness of breath; R00.1 Bradycardia, unspecified; K76.89 Other specified diseases of liver; K80.20 Calculus of gallbladder without cholecystitis without obstruction; F17.200 Nicotine dependence, unspecified, uncomplicated; Z79.52 Long term (current) use of systemic steroids; Z79.899 Other long term (current) drug therapy
CPT/HCPCS: 36415; 71045; 71275; 80048; 80076; 82550; 82553; 82728; 83605; 83615; 83690; 83880; 84439; 84443; 84484; 84703; 85025; 85379; 85610; 85652; 85730; 86140; 87631; 93005; 93041; 94640; 94760; 99285; Q9967

== ENCOUNTER → 2023-09-02 | Outpatient (CLI) | payer OTHER ==
[~2023-09-02] MED LIST changes: +ALBU6.7H6 INH; +OMEP40CA4 PO; +PRED20TA PO; +SUCR1TA PO
== END ==
LOC: M WHC 07:55
PROVIDERS: ATTEND Nurse Practitioner Family
DX: Z53.9 Procedure and treatment not carried out, unspecified reason (principal)

== ENCOUNTER → 2023-09-17 | Outpatient (CLI) | payer OTHER | LOC: M WHC 08:55 | PROVIDERS: ATTEND Nurse Practitioner Family | DX: N63.10 Unspecified lump in the right breast, unspecified quadrant (principal) | CPT/HCPCS: 76642; 77066; G0279 ==

== ENCOUNTER → 2023-10-27 | Outpatient (REF) | payer OTHER | LOC: M LAB REF 17:50 | PROVIDERS: ATTEND Internal Medicine Gastroenterology | DX: R19.4 Change in bowel habit (principal) ==

== ENCOUNTER 2024-01-07 10:04 | Day surgery (SDC) | payer OTHER ==
[~2024-01-07] VITALS: Ht 167.6 cm; Wt 68.0 kg
[~2024-01-07 10:04] MED LIST changes: +D-50TAB PO; +[UNRECOGNIZED DRUG - OTHER] PO
[2024-01-07] MEDS: NS 1,000 ML IV ONE (10:19)
[2024-01-07] MEDS ORDERED: fentaNYL 100 MCG/2 ML INJECTION As Ordered ONE (11:04)
[2024-01-07] MEDS ORDERED: propofoL 500 MG/50 ML VIAL As Ordered ONE (11:04)
[2024-01-07] MEDS ORDERED: LIDOCAINE 2% 100MG/5ML SDV (FOR ANES.) As Ordered ONE (11:04)
[2024-01-07 11:32] VITALS: TEMP 97
[2024-01-07 11:49] VITALS: BP 140/63; O2SAT 99
== END 2024-01-07 11:58 | disposition home or self-care (01) ==
LOC: M OPP 10:04
PROVIDERS: ATTEND Internal Medicine Gastroenterology
DX: D12.5 Benign neoplasm of sigmoid colon (principal); K63.5 Polyp of colon; K64.8 Other hemorrhoids; K58.0 Irritable bowel syndrome with diarrhea; K29.50 Unspecified chronic gastritis without bleeding; K31.89 Other diseases of stomach and duodenum; R12 Heartburn; R19.7 Diarrhea, unspecified; F17.200 Nicotine dependence, unspecified, uncomplicated; Z79.51 Long term (current) use of inhaled steroids; Z79.899 Other long term (current) drug therapy; Z91.048 Other nonmedicinal substance allergy status
CPT/HCPCS: 43239; 45380; 45385; 88305; J3010

== ENCOUNTER 2025-02-22 11:17 | Emergency (ER) | payer OTHER ==
[~2025-02-22] VITALS: Ht 167.6 cm; Wt 70.7 kg
[2025-02-22 11:25] VITALS: TEMP 99.5
[2025-02-22 12:59] LABS: BASO # 0.1 10^3/uL (0.0-0.2); BASO % 0.8 % (0.0-1.0); EOS # 0.3 10^3/uL (0.0-0.5); EOS % 2.5 % (0.0-3.0); HEMATOCRIT 43.8 % (36.0-47.0); HEMOGLOBIN 14.9 g/dl (12.0-15.5); LYMPH # 2.6 10^3/uL (1.5-5.0); LYMPH % 19.2 % (24.0-44.0); MEAN CORPUSCULAR HEMOGLOBIN 29.8 pg (27.0-33.0); MEAN CORPUSCULAR VOLUME 87.6 fl (80.0-96.0); MONO # 0.8 10^3/uL (0.0-0.8); MONO % 5.9 % (2.0-8.0); NEUTROPHILS # 9.6 10^3/uL (1.5-8.5); NEUTROPHILS % 71.3 % (36.0-66.0); PLATELET COUNT, AUTOMATED 274 10^3/uL (150-450); WHITE BLOOD COUNT 13.5 10^3/uL (4.0-10.0)
[2025-02-22 13:21] LABS: BLOOD UREA NITROGEN 6 MG/DL (9-23); CALCIUM LEVEL 10.5 MG/DL (8.5-10.1); CARBON DIOXIDE LEVEL 27 MMOL/L (20-31); CHLORIDE LEVEL 105 MMOL/L (98-107); CK-MB VALUE MASS < 1.0 NG/ML (<3.6); CREATININE FOR GFR 0.77 MG/DL (0.55-1.30); GLOMERULAR FILTRATION RATE > 60.0 (>58); GLUCOSE, FASTING 85 MG/DL (60-100); SODIUM LEVEL 140 MMOL/L (136-145)
[2025-02-22 13:23] LABS: CPK CREATINE PHOSPHOKINASE 46 U/L (34-145); MB/CK RELATIVE INDEX 2.17 (< OR =4)
[2025-02-22] MEDS ORDERED: ISOVUE-370 76% 100ML VIAL As Ordered ONE (14:13)
[2025-02-22 14:24] LABS: CK-MB VALUE MASS < 1.0 NG/ML (<3.6)
[2025-02-22 14:26] LABS: CPK CREATINE PHOSPHOKINASE 41 U/L (34-145); MB/CK RELATIVE INDEX 2.43 (< OR =4)
[2025-02-22] MEDS: KETOROLAC 30 MG/ML 1ML VIAL IV ONE (14:36)
[2025-02-22 15:45] VITALS: BP 118/63; O2SAT 97
== END 2025-02-22 16:25 | disposition home or self-care (01) ==
LOC: M ED 11:17
DX: R07.9 Chest pain, unspecified (principal); R00.1 Bradycardia, unspecified; G43.909 Migraine, unspecified, not intractable, without status migrainosus; Z91.048 Other nonmedicinal substance allergy status
CPT/HCPCS: 71045; 71275; 80048; 82550; 82553; 84484; 85025; 93005; 96374; 99284; J1885; Q9967